=== PATIENT | female | born 1960 | race Caucasian/White ===

== ENCOUNTER 2019-07-15 04:39 | Outpatient (CLI) | payer BC | END 2019-07-15 04:40 | disposition short-term general hospital (02) | LOC: EMS 04:39 | PROVIDERS: ATTEND Surgery | DX: R07.89 Other chest pain (principal); R00.8 Other abnormalities of heart beat; R51 Headache | CPT/HCPCS: A0425; A0427 ==

== ENCOUNTER 2024-03-11 07:10 | Outpatient (CLI) | payer OTHER ==
[2024-03-11 15:54] LABS: THYROID STIMULATING HORMONE 14.91 uIU/mL (0.34-5.60)
== END 2024-03-11 07:11 | disposition home or self-care (01) ==
LOC: LAB.S 07:10
PROVIDERS: ATTEND Naturopath
DX: E03.9 Hypothyroidism, unspecified (principal)
CPT/HCPCS: 36415; 84439; 84443; 84481